=== PATIENT | male | born 1950 | race Two or more races ===

== ENCOUNTER 2020-11-26 07:22 | Inpatient (IN) | payer OTHER ==
[2020-11-26] MEDS ORDERED: DIPH,PERTUS(ACELL)TETVAC-LF 0.5 ML VIAL IM ONE (07:26)
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
[2020-11-26] MEDS ORDERED: HYDROmorphone 0.5 MG/0.5 ML SYRINGE IVP PRN (07:49)
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
[2020-11-26 08:11] LABS: Basophils % (A) 0 %; Eosinophils # (A) 0.3 k/uL (0-0.7); Eosinophils % (A) 4 %; HCT 40.9 % (39.0-53.0); Lymphocytes # (A) 1.4 k/uL (1.0-4.8); Lymphocytes % (A) 16 %; MCH 31.8 pg (25.0-35.0); MCHC 34.3 g/dL (31.0-37.0); MCV 92.8 fL (80.0-100.0); Mean Platelet Volume 7.1; Monocytes # (A) 0.3 k/uL (0-1.0); Monocytes % (A) 4 %; Neutrophils # (A) 6.8 k/uL (1.3-7.7); Neutrophils % (A) 76 %; Platelet Count 165 k/uL (150-450); RBC 4.41 m/uL (4.30-5.90); RDW 12.6 % (11.5-15.5); WBC 9.1 k/uL (3.8-10.6)
[2020-11-26 08:19] LABS: ALT 47 U/L (4-49); AST 44 U/L (17-59); African American GFR (CKD) >90 (>60 ml/min/1.73 sqM); Albumin 3.8 g/dL (3.5-5.0); Alcohol <10 mg/dL; Alkaline Phosphatase 59 U/L (38-126); Anion Gap 7 mmol/L; Blood Urea Nitrogen 15 mg/dL (9-20); Calcium 8.6 mg/dL (8.4-10.2); Carbon Dioxide 24 mmol/L (22-30); Chloride 106 mmol/L (98-107); Glucose 144 mg/dL (74-99); Non-African American GFR(CKD) >90 (>60 ml/min/1.73 sqM); Potassium 3.8 mmol/L (3.5-5.1); Sodium 137 mmol/L (137-145); Total Bilirubin 0.4 mg/dL (0.2-1.3); Total Protein 6.7 g/dL (6.3-8.2)
[2020-11-26] MEDS ORDERED: HYDROmorphone 0.5 MG/0.5 ML SYRINGE IVP STA ×2 (08:23→09:07)
[2020-11-26 08:31] LABS: Prothrombin Time 10.7 sec (9.0-12.0)
[2020-11-26 08:34] LABS: Partial Thromboplastin Time 21.6 sec (22.0-30.0)
[2020-11-26 08:43] LABS: Glucose,Whole Blood 182 mg/dL (75-99)
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
[2020-11-26] MEDS ORDERED: ONDANSETRON 4 MG/2 ML VIAL IVP STA (09:37)
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
[2020-11-26] MEDS ORDERED: PROPOFOL 10 MG/ML 20 ML VIAL IV ONE (10:43)
--- NOTE | 2020-11-26 10:46 | XR ---
right Knee HISTORY: Trauma and pain 3 views of the right knee Bone mineralization, joint spaces and alignment are maintained. No evident joint effusion. IMPRESSION: No fracture or dislocation.
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
[2020-11-26] MEDS ORDERED: KETOROLAC 15 MG/ML 1 ML VIAL IVP PRN (12:12)
[2020-11-26] MEDS ORDERED: ACETAMINOPHEN TAB 325 MG TAB PO PRN (12:12)
[2020-11-26] MEDS ORDERED: NALOXONE 0.4 MG/ML 1 ML VIAL IV PRN (12:12)
[2020-11-26 12:13] LABS: Appearance,Urine Clear (Clear); Bilirubin,Urine Negative (Negative); Blood,Urine Negative (Negative); Color,Urine Light Yellow; Glucose,Urine (UA) Negative (Negative); Ketones,Urine Negative (Negative); Leukocyte Esterase,Urine Trace (Negative); Mucus,Urine Rare /hpf; Nitrite,Urine Negative (Negative); PH, Urine 5.5 (5.0-8.0); Protein,Urine Trace (Negative); RBC,Urine 6 /hpf (0-5); Squamous Epithelial Cell,Urine 1 /hpf (0-4); Urobilinogen,Urine <2.0 mg/dL (<2.0); WBC,Urine 6 /hpf (0-5)
[2020-11-26 12:29] LABS: Specific Gravity,Urine >1.050 (1.001-1.035)
[2020-11-26 12:40] LABS: Amphetamine Screen,Urine Not Detected (NotDetected); Barbiturate Screen,Urine Not Detected (NotDetected); Benzodiazepines Screen,Urine Not Detected (NotDetected); Cocaine Screen,Urine Not Detected (NotDetected); Methadone Screen, Urine Not Detected (NotDetected); Opiate Screen,Urine Detected (NotDetected); Oxycodone Screen, Urine Not Detected (NotDetected); Phencyclidine Screen,Urine Not Detected (NotDetected); Tricyclic Antidepressant,Urine Not Detected (NotDetected); Urn Cannabinoid Scrn Not Detected (NotDetected)
[2020-11-26] MEDS: HYDROmorphone 0.5 MG/0.5 ML SYRINGE IVP PRN ×2 (15:47→21:13)
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
--- NOTE | 2020-11-26 16:32 | XR ---
EXAMINATION TYPE: XR shoulder complete RT DATE OF EXAM: 11/26/2020 CLINICAL HISTORY: Post reduction TECHNIQUE: 2 views of the right shoulder are obtained. COMPARISON: Same day FINDINGS: There is relocation of the glenohumeral joint. IMPRESSION: 1. Relocation of the glenohumeral joint. ICD 10 NO FRACTURE, INITIAL EVALUATION
[2020-11-26] MEDS ORDERED: ATORVASTATIN 10 MG TAB PO SCH (21:00)
[2020-11-26] MEDS: FINASTERIDE 5 MG TAB PO SCH (21:12)
[2020-11-26] MEDS: lisinopriL 5 MG TAB PO SCH (21:12)
[2020-11-26] MEDS: TAMSULOSIN 0.4 MG CAP.ER.24H PO SCH (21:12)
[2020-11-26] MEDS: SODIUM CHLORIDE 0.9% 1,000 ML IV SCH (21:13)
[2020-11-27 02:21] VITALS: RESP 16
[2020-11-27] MEDS: HYDROmorphone 0.5 MG/0.5 ML SYRINGE IVP PRN (04:53)
[2020-11-27] MEDS ORDERED: LEVOTHYROXINE 75 MCG TAB PO SCH (06:30)
[2020-11-27] MEDS: FINASTERIDE 5 MG TAB PO SCH (08:27)
[2020-11-27] MEDS: TAMSULOSIN 0.4 MG CAP.ER.24H PO SCH (08:27)
[2020-11-27] MEDS: lisinopriL 5 MG TAB PO SCH (08:28)
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
[2020-11-27] MEDS: SODIUM CHLORIDE 0.9% 1,000 ML IV SCH (13:51)
[2020-11-27 14:34] VITALS: BP 171/78; PULSE 62; TEMP 98.1
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
[2020-12-01] MEDS ORDERED: LEVOTHYROXINE 137 MCG TAB PO SCH (06:30)
== END 2020-11-27 15:08 | disposition home or self-care (01) | DRG 563 ==
LOC: EC 07:22 → 1SOBS 12:12 → OBSVTOIN 12:12 → 6NMEDSUR 15:56
PROVIDERS: ADMIT Surgery Plastic and Reconstructive Surgery; ATTEND Surgery Plastic and Reconstructive Surgery
PROC: 0RSJXZZ Reposition Right Shoulder Joint, External Approach (ICD-10-PCS; principal; 2020-11-26)
PROC: 3E0234Z Introduction of Serum, Toxoid and Vaccine into Muscle, Percutaneous Approach (ICD-10-PCS; 2020-11-26)
DX: S43.004A Unspecified dislocation of right shoulder joint, initial encounter (principal); S09.90XA Unspecified injury of head, initial encounter; Z20.822 Contact with and (suspected) exposure to COVID-19; S80.01XA Contusion of right knee, initial encounter; S90.01XA Contusion of right ankle, initial encounter; T14.8XXA Other injury of unspecified body region, initial encounter; I45.10 Unspecified right bundle-branch block; I10 Essential (primary) hypertension; E89.0 Postprocedural hypothyroidism; E66.9 Obesity, unspecified; Z68.36 Body mass index [BMI] 36.0-36.9, adult; Z79.890 Hormone replacement therapy; Z79.899 Other long term (current) drug therapy; Z87.442 Personal history of urinary calculi; V43.62XA Car passenger injured in collision with other type car in traffic accident, initial encounter; Y92.410 Unspecified street and highway as the place of occurrence of the external cause
CPT/HCPCS: 23650; 36415; 70450; 71045; 71260; 72125; 72170; 74177; 80053; 80306; 80320; 81001; 84484; 85025; 85610; 85730; 86850; 86900; 86901; 87635; 90471; 90715; 93005; 96374; 96375; 96376; 99152; 99153; 99285

== ENCOUNTER 2021-01-24 19:41 | Emergency (ER) | payer MEDICARE ==
[2021-01-24 19:58] VITALS: TEMP 97.3
[2021-01-24] MEDS ORDERED: SODIUM CHLORIDE 0.9% 1,000 ML IV STA (20:17)
[2021-01-24] MEDS ORDERED: MORPHINE SULFATE 4 MG/ML SYRINGE IV STA (20:17)
[2021-01-24] MEDS ORDERED: ONDANSETRON 4 MG/2 ML VIAL IVP STA (20:17)
[2021-01-24 20:40] LABS: Basophils % (A) 1 %; Eosinophils # (A) 0.3 k/uL (0-0.7); Eosinophils % (A) 4 %; HCT 43.9 % (39.0-53.0); HGB 14.4 gm/dL (13.0-17.5); Lymphocytes # (A) 1.5 k/uL (1.0-4.8); Lymphocytes % (A) 19 %; MCH 30.3 pg (25.0-35.0); MCHC 32.7 g/dL (31.0-37.0); MCV 92.8 fL (80.0-100.0); Mean Platelet Volume 6.6; Monocytes # (A) 0.4 k/uL (0-1.0); Monocytes % (A) 6 %; Neutrophils # (A) 5.3 k/uL (1.3-7.7); Neutrophils % (A) 70 %; Platelet Count 175 k/uL (150-450); RBC 4.73 m/uL (4.30-5.90); RDW 13.5 % (11.5-15.5); WBC 7.6 k/uL (3.8-10.6)
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
[2021-01-24 20:42] LABS: Appearance,Urine Clear (Clear); Bilirubin,Urine Negative (Negative); Blood,Urine Negative (Negative); Color,Urine Yellow; Glucose,Urine (UA) Negative (Negative); Ketones,Urine Negative (Negative); Leukocyte Esterase,Urine Trace (Negative); Mucus,Urine Rare /hpf; Nitrite,Urine Negative (Negative); Protein,Urine Negative (Negative); Specific Gravity,Urine 1.022 (1.001-1.035); Squamous Epithelial Cell,Urine <1 /hpf (0-4); Urobilinogen,Urine <2.0 mg/dL (<2.0); WBC,Urine 3 /hpf (0-5)
[2021-01-24 20:48] LABS: ALT 74 U/L (4-49); AST 59 U/L (17-59); African American GFR (CKD) >90 (>60 ml/min/1.73 sqM); Albumin 4.1 g/dL (3.5-5.0); Alkaline Phosphatase 70 U/L (38-126); Amylase 71 U/L (30-110); Anion Gap 9 mmol/L; Blood Urea Nitrogen 17 mg/dL (9-20); Calcium 9.4 mg/dL (8.4-10.2); Carbon Dioxide 27 mmol/L (22-30); Chloride 103 mmol/L (98-107); Glucose 147 mg/dL (74-99); Lipase 75 U/L (23-300); Non-African American GFR(CKD) >90 (>60 ml/min/1.73 sqM); Potassium 4.1 mmol/L (3.5-5.1); Sodium 139 mmol/L (137-145); Total Bilirubin 0.3 mg/dL (0.2-1.3); Total Protein 7.1 g/dL (6.3-8.2)
--- NOTE | 2021-01-24 22:13 | CT ---
EXAMINATION TYPE: CT abdomen pelvis w con DATE OF EXAM: 01/24/2021 COMPARISON: 11/26/2020 HISTORY: Abdominal pain. Pt unable to raise RT arm. CT DLP: 2245.7 mGycm Automated exposure control for dose reduction was used. TECHNIQUE: Helical acquisition of images was performed from the lung bases through the pelvis. CONTRAST: Performed without Oral Contrast and with IV Contrast, patient injected with 100 mL of Isovu e 300. FINDINGS: LUNG BASES: No acute findings. LIVER/GB: No significant abnormality is appreciated. PANCREAS: No significant abnormality is seen. SPLEEN: No significant abnormality is seen. ADRENALS: No significant abnormality is seen. KIDNEYS: No significant abnormality is seen. PERITONEAL CAVITY: No pneumoperitoneum or peritoneal fluid.11 RETROPERITONEAL ADENOPATHY: None visualized REPRODUCTIVE ORGANS: No significant abnormality is seen URINARY BLADDER: No significant abnormality is seen. PELVIC ADENOPATHY: None visualized. OSSEOUS STRUCTURES: No significant abnormality is seen. BOWEL: No significant abnormality is seen. OTHER: No acute vascular findings. IMPRESSION: NO ACUTE CT PROCESS.
[2021-01-24] MEDS ORDERED: ACET/COD 300 MG/30 MG STARTER PACK 6 TAB BTL PO STA (22:23)
[2021-01-24 22:33] VITALS: BP 148/74; PULSE 82; RESP 16
== END 2021-01-24 22:33 | disposition home or self-care (01) ==
LOC: EC 19:41
DX: M54.42 Lumbago with sciatica, left side (principal); M54.41 Lumbago with sciatica, right side; R10.30 Lower abdominal pain, unspecified; I10 Essential (primary) hypertension
CPT/HCPCS: 36415; 80053; 82150; 83690; 85025; 81001; 74177; 99284; 96374; 96375; 96361 ×2; J2270; J2405; Q9967

== ENCOUNTER → 2021-11-21 | Day surgery (SDC) | payer MEDICARE ==
[2021-11-20 11:40] VITALS: BMI 35.2
[~2021-11-21] MED LIST: LIDOCAINE 1% (10MG/ML) FOR IV START INTRADERMA PRN; MIDAZOLAM 2 MG/2 ML VIAL IV PRN; PROPOFOL 10 MG/ML 20 ML VIAL IV ONE
[2021-11-21 08:33] VITALS: RESP 16; TEMP 97.2
[2021-11-21] MEDS: LACTATED RINGERS 1,000 ML IV SCH ×2 (08:34→08:39)
--- NOTE | 2021-11-21 09:18 | P.GSHP ---
History of Present Illness H&P Date: 11/21/21 Chief Complaint: GI bleed This is a 71-year-old male presents today for colonoscopy. Patient is fecal occult blood positive. Past Medical History Past Medical History: Cancer, Hypertension, Prostate Disorder, Thyroid Disorder Additional Past Medical History / Comment(s): THYROID CANCER History of Any Multi-Drug Resistant Organisms: None Reported Additional Past Surgical History / Comment(s): thyroidectomy, kidney stones removed. Past Anesthesia/Blood Transfusion Reactions: No Reported Reaction Smoking Status: Never smoker - Past Family History Sister(s) Family Medical History: Cancer Medications and Allergies Home Medications Medication Instructions Recorded Confirmed Type Finasteride [Proscar] 5 mg PO DAILY 11/26/20 11/20/21 History Levothyroxine Sodium [Synthroid] 150 mcg PO DAILY 11/26/20 11/20/21 History Lovastatin [Mevacor] 20 mg PO HS 11/26/20 11/20/21 History Tamsulosin [Flomax] 0.4 mg PO BID 11/26/20 11/20/21 History lisinopriL [Zestril] 5 mg PO DAILY 11/26/20 11/20/21 History Allergies Allergy/AdvReac Type Severity Reaction Status Date / Time No Known Allergies Allergy Verified 11/21/21 08:30 Surgical - Exam Vital Signs Temp Pulse Resp BP Pulse Ox 97.2 F L 75 16 119/71 96 11/21/21 08:32 11/21/21 08:32 11/21/21 08:32 11/21/21 08:32 11/21/21 08:32 - General well developed, well nourished, no distress - Eyes PERRL - ENT normal pinna - Neck no masses - Respiratory normal expansion - Cardiovascular Rhythm: regular - Abdomen Abdomen: soft, non tender Assessment and Plan Assessment: GI bleed. We'll perform colonoscopy.
--- NOTE | 2021-11-21 09:39 | P.OP ---
Date of Procedure: 11/21/21 Preoperative Diagnosis: GI bleed Postoperative Diagnosis: Diverticulosis External hemorrhoids Procedure(s) Performed: Colonoscopy Anesthesia: MAC Surgeon: Mark Catalan Pathology: none sent Condition: stable Disposition: PACU Description of Procedure: The patient's placed on the endoscopy table in the lateral position. She received he received IV sedation. Digital rectal exam was performed which revealed external hemorrhoids. The flexible colonoscope was then placed patient anus and passed throughout the entire colon. Ileocecal valve was visualized. Cecum, ascending and transverse colon appeared normal. In the descending and sigmoid colon there is moderate diverticular changes. The scope was then brought back the rectum this appeared normal. Scope was withdrawn for patient. There is no evidence of any GI bleed. His presumed patient may have had GI bleed due to hemorrhoids or diverticular bleeding.
[2021-11-21 10:00] VITALS: BP 126/72; PULSE 64
== END | disposition home or self-care (01) ==
LOC: ORWHC2ENDO 07:10
PROVIDERS: ATTEND Surgery
DX: K64.4 Residual hemorrhoidal skin tags (principal); K92.2 Gastrointestinal hemorrhage, unspecified; K57.30 Diverticulosis of large intestine without perforation or abscess without bleeding; I10 Essential (primary) hypertension; N42.9 Disorder of prostate, unspecified; E89.0 Postprocedural hypothyroidism; Z87.442 Personal history of urinary calculi; Z80.9 Family history of malignant neoplasm, unspecified; Z79.899 Other long term (current) drug therapy; Z85.850 Personal history of malignant neoplasm of thyroid
CPT/HCPCS: 45378; J2704